=== PATIENT | male | born 1965 | race Caucasian/White ===

== ENCOUNTER 2019-12-01 09:26 | Emergency (ER) | payer BC ==
[~2019-12-01] VITALS: Ht 182.9 cm; Wt 86.0 kg
[2019-12-01] MEDS ORDERED: ATROPINE SULFATE 1 MG VIAL ONE (09:37)
[2019-12-01] MEDS ORDERED: ATROPINE 0.5 MG/5 ML DISP.SYRIN. ONE (09:37)
[2019-12-01] MEDS ORDERED: ATROPINE 0.5 MG/5 ML DISP.SYRIN. IV ONE (09:45)
[2019-12-01] MEDS ORDERED: IV NORMAL SALINE 1,000ML 1,000 ML IV SCH (09:45)
[2019-12-01] MEDS ORDERED: PIPERACILLIN/TAZOBACTAM 4.5 GM in IV NORMAL SALINE 50ML 50 ML IV ONE (09:45)
[2019-12-01] MEDS ORDERED: RANI-376 PO (09:46)
--- NOTE | 2019-12-01 09:48 | PHYS DOC ---
Past History Past Medical History: GERD Past Surgical History: No Surgical History Smoking: Non-smoker Alcohol Use: None General Adult EDM: Chief Complaint: ABDOMINAL PAIN HPI: HPI: Patient is a 54-year-old male who presents to the emergency department via EMS. He states overnight he began experiencing severe right upper quadrant pain, has had similar symptoms on and off in the past, and about a year ago underwent a work-up and was told that the problem was his gallbladder. He has not had any nausea, vomiting, diarrhea, or significant chest discomfort. He denies any shortness of breath, fevers, or chills. He was noted to be bradycardic and hypotensive upon arrival. There are no alleviating or exacerbating factors to his symptoms otherwise. He states that since his prior gallbladder episodes, he has watched what he eats, and been given an acid reducing medication which has helped manage his symptoms until this point. Review of Systems: Review of Systems: Constitutional: Denies fever or chills Eyes: Denies change in visual acuity HENT: Denies nasal congestion or sore throat Respiratory: Denies cough or shortness of breath Cardiovascular: Denies chest pain or edema GI: As per HPI : Denies dysuria Musculoskeletal: Denies back pain or joint pain Integument: Denies rash Neurologic: Denies headache, focal weakness or sensory changes Endocrine: Denies polyuria or polydipsia Lymphatic: Denies swollen glands Psychiatric: Denies depression or anxiety Heart Score: Risk Factors: Risk Factors: DM, Current or recent (<one month) smoker, HTN, HLP, family history of CAD, obesity. Risk Scores: Score 0 - 3: 2.5% MACE over next 6 weeks - Discharge Home Score 4 - 6: 20.3% MACE over next 6 weeks - Admit for Clinical Observation Score 7 - 10: 72.7% MACE over next 6 weeks - Early Invasive Strategies Current Medications: Current Meds: Current Medications Medications (Trade) Dose Ordered Sig/Shila Start Time Stop Time Status Last Admin Dose Admin Atropine Sulfate (ATROPINE 0.5mg SYRINGE) 0.5 mg STK-MED ONCE 12/01/19 09:37 12/01/19 09:37 DC Atropine Sulfate (Atropine Sulfate) 1 mg STK-MED ONCE 12/01/19 09:37 12/01/19 09:37 DC Physical Exam: PE: PHYSICAL EXAM: CONSTITUTIONAL: Well developed, well nourished HEAD: normocephalic, atraumatic EENT: PERRL, EOMI. Conjunctivae normal color, sclerae non-icteric; moist mucous membranes. NECK: Supple, non-tender; no meningismus. LUNGS: Lungs CTA, breathing even and unlabored. Normal air movement. HEART: Regular rate and rhythm, no murmur CHEST: No deformity; non-tender ABDOMEN: The abdomen is soft, there is focal right upper quadrant tenderness to palpation, Otero sign is positive, the remainder the abdomen is soft and non- tender, no masses or bruits. Bowel sounds are diminished. EXTREM: Normal ROM; no deformity, no calf tenderness. Normal pulses palpable in all extremities. There is no pedal edema. SKIN: No rash; no diaphoresis NEURO: Alert; normal speech and cognition; CN's grossly intact; strength grossly intact without focal deficit. BACK: No CVA TTP. Current Patient Data: Labs: Laboratory Tests Test 12/01/19 09:36 12/01/19 09:46 12/01/19 10:59 Prothrombin Time 10.4 SEC Prothromb Time International Ratio 1.0 Activated Partial Thromboplast Time 22 SEC Sodium Level 142 mmol/L Potassium Level 3.9 mmol/L Chloride Level 107 mmol/L Carbon Dioxide Level 27 mmol/L Anion Gap 8 Blood Urea Nitrogen 17 mg/dL Creatinine 1.2 mg/dL Estimated GFR (Cockcroft-Gault) 63.1 BUN/Creatinine Ratio 14 Glucose Level 121 mg/dL Calcium Level 8.7 mg/dL Total Bilirubin 1.0 mg/dL Aspartate Amino Transf (AST/SGOT) 36 U/L Alanine Aminotransferase (ALT/SGPT) 28 U/L Alkaline Phosphatase 60 U/L Troponin I Quantitative < 0.017 ng/mL Total Protein 6.5 g/dL Albumin 3.5 g/dL Albumin/Globulin Ratio 1.2 Lipase 151 U/L Lactic Acid Level 1.4 mmol/L White Blood Count 8.8 x10^3/uL Red Blood Count 4.65 x10^6/uL Hemoglobin 14.1 g/dL Hematocrit 41.8 % Mean Corpuscular Volume 90 fL Mean Corpuscular Hemoglobin 30 pg Mean Corpuscular Hemoglobin Concent 34 g/dL Red Cell Distribution Width 13.4 % Platelet Count 165 x10^3/uL Neutrophils (%) (Auto) 86 % Lymphocytes (%) (Auto) 8 % Monocytes (%) (Auto) 5 % Eosinophils (%) (Auto) 1 % Basophils (%) (Auto) 0 % Neutrophils # (Auto) 7.5 x10^3uL Lymphocytes # (Auto) 0.7 x10^3/uL Monocytes # (Auto) 0.5 x10^3/uL Eosinophils # (Auto) 0.0 x10^3/uL Basophils # (Auto) 0.0 x10^3/uL Current Medications Medications (Trade) Dose Ordered Sig/Shila Route PRN Reason Start Time Stop Time Status Last Admin Dose Admin Atropine Sulfate (ATROPINE 0.5mg SYRINGE) 0.5 mg STK-MED ONCE .ROUTE 12/01/19 09:37 12/01/19 09:37 DC Atropine Sulfate (Atropine Sulfate) 1 mg STK-MED ONCE .ROUTE 12/01/19 09:37 12/01/19 09:37 DC Fentanyl Citrate (Fentanyl 2ml Vial) 50 mcg PRN Q15MIN PRN IV PAIN GREATER THAN 310 12/01/19 09:45 12/02/19 09:44 12/01/19 10:13 Piperacillin Sod/ Tazobactam Sod 4.5 gm/Sodium Chloride 50 ml @ 100 mls/hr 1X ONCE IV 12/01/19 09:45 12/01/19 10:14 DC 12/01/19 10:10 Sodium Chloride 2,580 ml @ 2,340 mls/hr Q1H7M IV 12/01/19 09:45 12/01/19 10:51 DC 12/01/19 10:13 Atropine Sulfate (ATROPINE 0.5mg SYRINGE) 0.5 mg 1X ONCE IV 12/01/19 09:45 12/01/19 09:48 DC 12/01/19 09:40 Sodium Chloride 50 ml @ As Directed STK-MED ONCE .ROUTE 12/01/19 09:55 12/01/19 09:55 DC Piperacillin Sod/ Tazobactam Sod (Zosyn) 4.5 gm STK-MED ONCE IV 12/01/19 09:55 12/01/19 09:55 DC Sodium Chloride 50 ml @ As Directed STK-MED ONCE .ROUTE 12/01/19 09:58 12/01/19 09:58 DC Iohexol (Omnipaque 300 Mg/ml) 75 ml 1X ONCE IV 12/01/19 11:00 12/01/19 11:01 DC 12/01/19 11:10 Vital Signs: Vital Signs Date Time Temp Pulse Resp B/P (MAP) Pulse Ox O2 Delivery O2 Flow Rate FiO2 12/01/19 09:29 98.1 48 20 87/40 (56) 99 Room Air EKG: EKG: Sinus bradycardia rate of 46 bpm, normal axis, normal intervals, nonspecific ST/T changes are present in V3 only. [] Radiology/Procedures: Radiology/Procedures: PROCEDURE: PORTABLE CHEST 1V PORTABLE CHEST 1V History: Right upper quadrant pain. Rule out free air. Comparison: None. Findings: No consolidation or pleural effusion. Normal heart size. No pneumothorax. Mild elevation of the right hemidiaphragm. No pneumoperitoneum. Impression: 1. No acute cardiopulmonary process. 2. No pneumoperitoneum. [] PROCEDURE: ABDOMEN LTD Examination: Ultrasound abdomen limited HISTORY: History of right upper quadrant pain Comparison none available. FINDINGS: The pancreas is not well-visualized due to bowel gas. The liver length measures 15.1 cm. Increased echogenicity noted throughout the liver likely hepatic steatosis. Contracted appearing gallbladder. The gallbladder wall thickness measures 4.1 mm. The right kidney measures 8.7 x 4.4 x 4.3 cm. Examination limited due to bowel gas. IMPRESSION: 1. Contracted appearing gallbladder, probably secondary to non NPO status. 2. Hepatic steatosis. PROCEDURE: CT ABD PELV W/ IV CONTRST ONLY Examination: CT of the abdomen pelvis with IV contrast HISTORY: History of right upper quadrant pain COMPARISON: None available TECHNIQUE: Axial CT images of the abdomen pelvis with IV contrast. Coronal and sagittal reformats. Exposure: One or more of the following individualized dose reduction techniques were utilized for this examination: 1. Automated exposure control 2. Adjustment of the mA and/or kV according to patient size 3. Use of iterative reconstruction technique Findings: Minimal bibasilar lung atelectasis. No evidence of free air identified in the abdomen. The liver, spleen, adrenals grossly appears unremarkable. Gallbladder is mildly distended. Questionable gallstone identified in the gallbladder. The stomach is mildly distended. The visualized pancreas grossly appears unremarkable. Small bowel is nondilated. The appendix is normal. Mild thickened appearance of the wall of the colon particularly in the distal descending colon and sigmoid colon with minimal surrounding fat stranding likely colitis. Urinary bladder is mildly distended. Small fat-containing umbilical hernia. The bilateral kidneys enhance symmetrically. Moderate degenerative changes bilateral hip joints. Moderate degenerative changes lumbar spine. IMPRESSION: 1. Mild thickened appearance of the wall of the colon particularly in the distal descending colon and sigmoid colon with minimal surrounding fat stranding likely colitis. 2. Questionable gallstone identified in the gallbladder. Recommend ultrasound right upper quadrant abdomen. Course & Med Decision Making: Course & Med Decision Making Pertinent Labs and Imaging studies reviewed. (See chart for details) CRITICAL CARE TIME: 45 Minutes, excluding any procedures and care of other patients. 12:00 PM: The patient's condition remains stable, his heart rate has been in the 60s to 80s with his blood pressure currently 103/62. His labs are normal, somewhat surprisingly. I am not highly suspicious that he has acute colitis in his descending colon, as he has no tenderness to palpation in this area, I do suspect he does not fact have a gallstone, he did eat breakfast this morning whi ch likely represents his contracted gallbladder, he does warrant further surgical evaluation and likely hepatobiliary scan. I discussed the case with our hospitalist, Dr. Portillo, who will take care of the patient at [facility] where he has surgical backup available. The patient is agreeable to transfer. Charanjit Disclaimer: Charanjit Disclaimer: This electronic medical record was generated, in whole or in part, using a voice recognition dictation system. Departure Departure: Impression: Primary Impression: Right upper quadrant abdominal pain Additional Impression: Hypotension Disposition: 02 XFER T-TRM HOSP Admitting Physician: Argenis Portillo Condition: IMPROVED Referrals: PCP,AMARJIT (PCP) JORDYN VERAS MD December 01, 2019 09:48
[2019-12-01] MEDS ORDERED: IV NORMAL SALINE 50ML 50 ML ONE ×2 (09:55→09:58)
[2019-12-01] MEDS ORDERED: PIPERACILLIN/TAZOBACTAM 4.5 GM VIAL IV ONE (09:55)
[2019-12-01 10:08] LABS: CALCIUM 8.7 mg/dL (8.5-10.1); CREATININE 1.2 mg/dL (0.7-1.3); GFR 63.1; POTASSIUM 3.9 mmol/L (3.5-5.1)
[2019-12-01 10:11] LABS: ALBUMIN 3.5 g/dL (3.4-5.0); ALBUMIN/GLOBULIN RATIO 1.2 (1.0-1.7); TOTAL PROTEIN 6.5 g/dL (6.4-8.2)
--- NOTE | 2019-12-01 10:25 | RAD ---
Examination: Ultrasound abdomen limited HISTORY: History of right upper quadrant pain Comparison none available. FINDINGS: The pancreas is not well-visualized due to bowel gas. The liver length measures 15.1 cm. Increased echogenicity noted throughout the liver likely hepatic steatosis. Contracted appearing gallbladder. The gallbladder wall thickness measures 4.1 mm. The right kidney measures 8.7 x 4.4 x 4.3 cm. Examination limited due to bowel gas. IMPRESSION: 1. Contracted appearing gallbladder, probably secondary to non NPO status. 2. Hepatic steatosis. Electronically signed by: Alfredo Kim MD (12/01/2019 10:22 AM) [id number]
--- NOTE | 2019-12-01 10:43 | RAD ---
PORTABLE CHEST 1V History: Right upper quadrant pain. Rule out free air. Comparison: None. Findings: No consolidation or pleural effusion. Normal heart size. No pneumothorax. Mild elevation of the right hemidiaphragm. No pneumoperitoneum. Impression: 1. No acute cardiopulmonary process. 2. No pneumoperitoneum. Electronically signed by: Michael Bowers DO (12/01/2019 10:40 AM) [id number]
[2019-12-01] MEDS ORDERED: IOHEXOL 300 MG/ML 75 ML VIAL. IV ONE (11:00)
[2019-12-01 11:11] LABS: BASO % 0 % (0-3); EOS % 1 % (0-3); HEMATOCRIT 41.8 % (39.0-53.0); HEMOGLOBIN 14.1 g/dL (13.0-17.5); LYMPH # 0.7 x10^3/uL (1.0-4.8); LYMPH % 8 % (24-48); MEAN CORPUSCULAR HEMOGLOBIN 30 pg (25-35); MEAN CORPUSCULAR HGB CONC 34 g/dL (31-37); MEAN CORPUSCULAR VOLUME 90 fL (79-100); MONO # 0.5 x10^3/uL (0.0-1.1); MONO % 5 % (0-9); NEUT # 7.5 x10^3uL (1.8-7.7); NEUT % 86 % (31-73); PLATELET COUNT 165 x10^3/uL (140-400); RED BLOOD COUNT 4.65 x10^6/uL (4.30-5.70); RED CELL DISTRIBUTION WIDTH 13.4 % (11.5-14.5); WHITE BLOOD COUNT 8.8 x10^3/uL (4.0-11.0)
--- NOTE | 2019-12-01 11:38 | RAD ---
Examination: CT of the abdomen pelvis with IV contrast HISTORY: History of right upper quadrant pain COMPARISON: None available TECHNIQUE: Axial CT images of the abdomen pelvis with IV contrast. Coronal and sagittal reformats. Exposure: One or more of the following individualized dose reduction techniques were utilized for this examination: 1. Automated exposure control 2. Adjustment of the mA and/or kV according to patient size 3. Use of iterative reconstruction technique Findings: Minimal bibasilar lung atelectasis. No evidence of free air identified in the abdomen. The liver, spleen, adrenals grossly appears unremarkable. Gallbladder is mildly distended. Questionable gallstone identified in the gallbladder. The stomach is mildly distended. The visualized pancreas grossly appears unremarkable. Small bowel is nondilated. The appendix is normal. Mild thickened appearance of the wall of the colon particularly in the distal descending colon and sigmoid colon with minimal surrounding fat stranding likely colitis. Urinary bladder is mildly distended. Small fat-containing umbilical hernia. The bilateral kidneys enhance symmetrically. Moderate degenerative changes bilateral hip joints. Moderate degenerative changes lumbar spine. IMPRESSION: 1. Mild thickened appearance of the wall of the colon particularly in the distal descending colon and sigmoid colon with minimal surrounding fat stranding likely colitis. 2. Questionable gallstone identified in the gallbladder. Recommend ultrasound right upper quadrant abdomen. Electronically signed by: Alfredo Kim MD (12/01/2019 11:35 AM) [id number]
[2019-12-01] MEDS ORDERED: FAMOTIDINE 20 MG/2 ML VIAL IVP ONE (13:15)
[2019-12-01 13:21] LABS: BILIRUBIN,URINE NEG (NEG); CLARITY,URINE CLEAR; COLOR,URINE YELLOW; GLUCOSE,URINE NEG (NEG)
[2019-12-01 13:22] LABS: BACTERIA,URINE 0 /HPF (0-FEW); NITRITE,URINE NEG (NEG); RBC,URINE OCC /HPF (0-2)
[2019-12-01 14:30] VITALS: BP 104/67
--- NOTE | 2019-12-02 03:55 | EKG ---
[address] [address] Test Date: 2019-12-01 Test Time: 09:33:08 Pat Name: ULISES MCMILLAN Department: Room: Gender: M Superintendent Institution: : 1965 Requested By: JORDYN VERAS Order Number: [id number] Reading MD: Edgardo Torres Measurements Intervals Osteen Rate: 46 P: 41 DC: 168 QRS: 58 QRSD: 86 T: 30 QT: 430 QTc: 377 Interpretive Statements SINUS BRADYCARDIA Electronically Signed On 12-02-2019 8:28:49 CDT by Edgardo Torres
== END 2019-12-01 15:13 | disposition short-term general hospital (02) ==
LOC: ER 09:26
DX: R10.11 Right upper quadrant pain (principal); I95.9 Hypotension, unspecified
CPT/HCPCS: 36415; 71045; 74177; 76705; 80053; 81001; 83605; 83690; 84484; 85025; 85610; 85730; 87040; 93005; 96365; 96375; 96376; 99285; J0461; J2543; J3010; J3490; Q9967; 96374; J7030